=== PATIENT | female | born 1940 | race Caucasian/White ===

== ENCOUNTER → 2018-01-12 | Outpatient (CLI) | payer MEDICARE | END | disposition home or self-care (01) | LOC: ECHO 08:42 | DX: I08.0 Rheumatic disorders of both mitral and aortic valves (principal); I70.0 Atherosclerosis of aorta; I31.3 Pericardial effusion (noninflammatory) | CPT/HCPCS: 93306 ==

== ENCOUNTER → 2020-08-29 | Outpatient (CLI) | payer MEDICARE ==
--- NOTE | 2020-08-29 13:13 | CARD ---
MR#: [id number] Date of Study: 08/29/2020 Ordering Physician: MARGRET LOPEZ, Referring Physician: MARGRET LOPEZ, Tech: Laura Mcconnell [facility] APPROVED REPORT EXAM: Two-dimensional and M-mode echocardiogram with Doppler and color Doppler. Other Information Quality : Good INDICATION Aortic Stenosis 2D DIMENSIONS RVDd2.4 (2.9-3.5cm)Left Atrium(2D)3.0 (1.6-4.0cm) IVSd1.0 (0.7-1.1cm)Aortic Root(2D)2.9 (2.0-3.7cm) LVDd4.4 (3.9-5.9cm)LVOT Diameter2.0 (1.8-2.4cm) PWd0.9 (0.7-1.1cm)LVDs2.6 (2.5-4.0cm) FS (%) 30.0 %SV63.8 ml LVEF(%)60.0 (>50%) M-Mode DIMENSIONS Aortic Cusp Exc0.97 (1.5-2.0cm) Aortic Valve AoV Peak Julio.368.0cm/sAoV VTI91.7cm AO Peak GR.54.2mmHgLVOT VTI 29.57cm AO Mean GR.32mmHgAVA (VTI)1.00cm2 Mitral Valve MV E Pmybpfqg20.1cm/sMV DECEL KIZE339tm MV A Gycidusr243.2cm/sE/A Ratio0.8 TDI Lateral E' P. V7.79cm/sMedial E' P. V5.99cm/s E/Lateral E'11.8E/Medial E'15.4 Tricuspid Valve TR P. Xtjfcbke548rs/sRAP BFKOQYSE7inKp TR Peak Gr.35xeJsODCS23bqQo Pulmonary Vein S1 Zctictwc86.9cm/sS2 Pukkbqxv73.18cm/s D2 Osgjxwgn75.2cm/s LEFT VENTRICLE The left ventricle is normal size. There is normal left ventricular wall thickness. The left ventricu lar systolic function is normal. The Ejection Fraction is 55-60%. There is normal LV segmental wall m otion. Transmitral Doppler flow pattern is Grade I-abnormal relaxation pattern. RIGHT VENTRICLE The right ventricle is normal size. The right ventricular systolic function is normal. ATRIA The left atrium size is normal. The right atrium size is normal. The interatrial septum is intact wit h no evidence for an atrial septal defect or patent foramen ovale as noted on 2-D or Doppler imaging. AORTIC VALVE The aortic valve is calcified and displays decreased opening. Doppler and Color Flow revealed no sign ificant aortic regurgitation. Calculated aortic valve area is 1.0 cm2 with maximum pressure gradient of 54 mmHg and mean pressure gradient of 32 mmHg. Doppler and color-flow analysis revealed moderate a ortic stenosis. MITRAL VALVE The mitral valve is normal in structure and function. There is no evidence of mitral valve prolapse. There is no mitral valve stenosis. Doppler and Color Flow revealed no mitral valve regurgitation note d. TRICUSPID VALVE The tricuspid valve is normal in structure and function. Doppler and Color Flow revealed trace tricus pid regurgitation. The PA pressure was estimated at 29 mmHg. There is no tricuspid valve stenosis. PULMONIC VALVE The pulmonic valve is not well visualized. Doppler and Color Flow revealed no pulmonic valvular regur gitation. There is no pulmonic valvular stenosis. GREAT VESSELS The aortic root is normal in size. The ascending aorta is normal in size. The IVC is normal in size a nd collapses >50% with inspiration. PERICARDIAL EFFUSION There is no evidence of significant pericardial effusion. Critical Notification Critical Value: No <Conclusion> The left ventricular systolic function is normal. The Ejection Fraction is 55-60%. There is normal LV segmental wall motion. Transmitral Doppler flow pattern is Grade I-abnormal relaxation pattern. Doppler and color-flow analysis revealed moderate aortic stenosis. Trace tricuspid regurgitation. The PA pressure was estimated at 29 mmHg. There is no evidence of significant pericardial effusion. Signed by : Brody Menjivar, Electronically Approved : 08/29/2020 13:13:16
== END ==
LOC: ECHO 11:00
PROVIDERS: ATTEND Internal Medicine Cardiovascular Disease
DX: I35.1 Nonrheumatic aortic (valve) insufficiency (principal)
CPT/HCPCS: 93306